=== PATIENT | female | born 1985 | race Caucasian/White ===

== ENCOUNTER → 2021-07-27 | Emergency (ER) | payer SELFPAY ==
--- NOTE | 2021-07-27 10:06 | PHYS DOC ---
Orders, Labs, Meds Patient was registered in error. This patient was not evaluated in the emergency department. FE MELGOZA MD July 27, 2021 10:06
== END | disposition left against medical advice (07) ==
LOC: ER 09:53
DX: R07.9 Chest pain, unspecified (principal); Z53.21 Procedure and treatment not carried out due to patient leaving prior to being seen by health care provider